=== PATIENT | male | born 2000 | race Caucasian/White ===

== ENCOUNTER 2019-10-11 10:17 | Emergency (ER) | payer SELFPAY ==
[~2019-10-11] VITALS: Ht 167.6 cm; Wt 71.5 kg
[2019-10-11] MEDS ORDERED: BUTA1TAB23 PO (10:24)
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
[2019-10-11] MEDS ORDERED: KETOROLAC 15 MG/ML VIAL. IVP ONE (10:45)
[2019-10-11] MEDS ORDERED: IV NORMAL SALINE 1,000ML 1,000 ML IV ONE (10:45)
[2019-10-11] MEDS ORDERED: ORPHENADRINE CITRATE 60 MG/2 ML VIAL. IV ONE (10:45)
[2019-10-11] MEDS ORDERED: ONDANSETRON PF 4 MG/2 ML VIAL. IVP ONE (10:45)
[2019-10-11 11:06] VITALS: BP 144/95
[2019-10-11 11:07] LABS: BASO % 0 % (0-3); EOS % 0 % (0-3); HEMATOCRIT 47.3 % (39.0-53.0); HEMOGLOBIN 16.3 g/dL (13.0-17.5); LYMPH % 8 % (24-48); MEAN CORPUSCULAR HEMOGLOBIN 32 pg (25-35); MEAN CORPUSCULAR HGB CONC 34 g/dL (31-37); MEAN CORPUSCULAR VOLUME 93 fL (79-100); MONO # 1.2 x10^3/uL (0.0-1.1); MONO % 9 % (0-9); NEUT # 10.9 x10^3uL (1.8-7.7); NEUT % 83 % (31-73); PLATELET COUNT 239 x10^3/uL (140-400); RED BLOOD COUNT 5.11 x10^6/uL (4.30-5.70); WHITE BLOOD COUNT 13.2 x10^3/uL (4.0-11.0)
[2019-10-11 11:11] LABS: CALCIUM 8.9 mg/dL (8.5-10.1); CREATININE 3.1 mg/dL (0.7-1.3); GFR 25.6; POTASSIUM 4.2 mmol/L (3.5-5.1)
[2019-10-11 11:16] LABS: ALBUMIN 4.1 g/dL (3.4-5.0); ALBUMIN/GLOBULIN RATIO 1.3 (1.0-1.7); TOTAL PROTEIN 7.2 g/dL (6.4-8.2)
[2019-10-11 11:26] LABS: BILIRUBIN,URINE NEG (NEG); CLARITY,URINE CLEAR; COLOR,URINE YELLOW; GLUCOSE,URINE NEG (NEG); NITRITE,URINE NEG (NEG); UROBILINOGEN,URINE 0.2 mg/dL (0.2 mg/dL)
[2019-10-11 11:27] LABS: BACTERIA,URINE 0 /HPF (0-FEW); SQUAMOUS EPITHELIAL CELL,UR FEW /LPF
--- NOTE | 2019-10-11 12:12 | RAD ---
CT HEAD WO CONTRAST Date: 10/11/2019 11:40 AM Clinical Indication: headache, N/V Comparison: 12/05/2011. Technique: 5 mm axial tomographic images were obtained of the head without contrast. These were viewed on brain and bone windows. One or more of the following dose reduction techniques were utilized: Automated exposure control (AEC), Adjustment of mA and/or kV according to patient size, Use of iterative reconstruction technique such as ASiR, CT scan done according to ALARA and image gently/image wisely Findings: The brain parenchyma is normal in attenuation. No intra- or extra-axial mass or fluid collection. No acute hemorrhage. The ventricles are normal in size, shape, and morphology. The pablo-white matter junction is normal. The subarachnoid cisterns are patent. The visualized paranasal sinuses are normal. The visualized portions of the orbits and globes are normal. The mastoid air cells are clear. The radiological technician topogram shows no lytic lesion or fracture. Impression: No acute intracranial process. Electronically signed by: Jayce Trayolr MD (10/11/2019 12:09 PM) [id number]
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
[2019-10-11] MEDS ORDERED: ORPH-16 PO (12:43)
== END 2019-10-11 12:54 | disposition home or self-care (01) ==
LOC: ER 10:17
DX: S00.83XA Contusion of other part of head, initial encounter (principal); I12.9 Hypertensive chronic kidney disease with stage 1 through stage 4 chronic kidney disease, or unspecified chronic kidney disease; N18.9 Chronic kidney disease, unspecified; M54.5 Low back pain; R51 Headache; R11.2 Nausea with vomiting, unspecified; Y08.89XA Assault by other specified means, initial encounter; Y93.89 Activity, other specified; Y92.89 Other specified places as the place of occurrence of the external cause; Y99.8 Other external cause status
CPT/HCPCS: 36415; 70450; 74176; 80053; 81001; 83735; 85025; 87086; 96361; 96374; 96375; 99285; J1885; J2360; J2405; J7030